=== PATIENT | female | born 1945 | race Caucasian/White ===

== ENCOUNTER → 2017-05-19 | Outpatient (CLI) | payer OTHER ==
[~2017-05-19] MED LIST: ALPR-475 PO; AMLO10TA4 PO; ASPI-13 PO; CARV25TA12 PO; HYDR-882 PO; LEVO100T5 PO; LOSA1TAB12 PO; METF500T27 PO; OMEP20TA62 PO; PREG100C PO; REGADENOSON 0.4 MG/5 ML SYRINGE ONE; ZOLP10TA PO
== END | disposition home or self-care (01) ==
LOC: CFH 11:52
PROVIDERS: ATTEND Internal Medicine
DX: I25.10 Atherosclerotic heart disease of native coronary artery without angina pectoris (principal); E11.9 Type 2 diabetes mellitus without complications
CPT/HCPCS: 78452; 93017; A9502; J2785

== ENCOUNTER 2017-10-19 | Inpatient (IN) | payer OTHER ==
[~2017-10-19] VITALS: Ht 162.6 cm; Wt 99.3 kg
[~2017-10-19] MED LIST changes: -REGADENOSON 0.4 MG/5 ML SYRINGE ONE
[2017-10-19] MEDS ORDERED: SODIUM CHLORIDE FLUSH 10ML SYR IVF ONE (01:30)
[2017-10-19] MEDS ORDERED: SODIUM CHLORIDE 0.9% 1,000ML IVBOLUS ONE (01:30)
[2017-10-19] MEDS ORDERED: ONDANSETRON 2MG/ML, 2ML IVPush ONE (01:30)
[2017-10-19] MEDS ORDERED: KETOROLAC 30 MG/1 ML IVPush ONE (01:30)
[2017-10-19] MEDS ORDERED: PHENAZOPYRIDINE 200 MG TABLET ONE (01:39)
[2017-10-19] MEDS ORDERED: ONDANSETRON 2MG/ML, 2ML ONE (01:39)
[2017-10-19] MEDS ORDERED: KETOROLAC 30 MG/1 ML ONE (01:39)
[2017-10-19 01:53] LABS: BASOPHILS # (AUTO) 0.04 x10^3/uL (0-0.1); BASOPHILS % (AUTO) 0 % (0-1); EOSINOPHILS # (AUTO) 0.15 x10^3/uL (0-0.4); EOSINOPHILS % (AUTO) 1 % (1-7); LYMPHOCYTES # (AUTO) 1.69 x10^3/uL (1-3.4); LYMPHOCYTES % (AUTO) 14 % (22-44); MD NO; MEAN CORPUSCULAR HEMOGLOBIN 30.1 pg (27.0-34.8); MEAN CORPUSCULAR HGB CONC 33.7 g/dL (32.4-35.8); MEAN CORPUSCULAR VOLUME 89.3 fL (80-100); MEAN PLATELET VOLUME 8.2 fL (7.4-10.4); MONOCYTES # (AUTO) 0.77 x10^3/uL (0.2-0.8); MONOCYTES % (AUTO) 6 % (2-9); NEUTROPHILS % (AUTO) 79 % (42-75); PLATELET COUNT 360 x10^3/uL (130-400); RED BLOOD COUNT 4.38 x10^6/uL (3.82-5.3); RED CELL DISTRIBUTION WIDTH 13.4 % (9.6-15.2)
[2017-10-19] MEDS ORDERED: PHENAZOPYRIDINE 200 MG TABLET PO ONE (02:00)
[2017-10-19 02:07] LABS: ALANINE AMINOTRANSFERASE 91 U/L (12-78); ALBUMIN 3.3 g/dL (3.4-5.0); ANION GAP 7 mmol/L (5-15); CALCIUM 8.7 mg/dL (8.5-10.1); CHLORIDE 107 mmol/L (98-107); CREATININE 0.96 mg/dL (0.55-1.02)
[2017-10-19 02:09] LABS: ALKALINE PHOSPHATASE 348 U/L (45-117); BILIRUBIN,TOTAL 0.5 mg/dL (0.2-1.0); TOTAL PROTEIN 7.9 g/dL (6.4-8.2)
[2017-10-19 02:43] LABS: CULTURE INDICATED? YES; MICROSCOPIC INDICATED
[2017-10-19] MEDS ORDERED: CEFTRIAXONE PMX 1GM/50ML 50 ML ONE (02:57)
[2017-10-19] MEDS ORDERED: CEFTRIAXONE PMX 1GM/50ML 50 ML IV ONE (03:00)
[2017-10-19] MEDS ORDERED: SODIUM CHLORIDE 0.9% 1,000 ML IV ONE (03:03)
[2017-10-19] MEDS ORDERED: OMEG1CAP23 PO (03:21)
[2017-10-19] MEDS ORDERED: CHOL5000 PO (03:21)
[2017-10-19] MEDS ORDERED: PROMETHAZINE 25 MG/ML, 1ML IM PRN ×2 (03:30→20:00)
[2017-10-19] MEDS ORDERED: SODIUM CHLORIDE FLUSH 10ML SYR IVF PRN (03:30)
[2017-10-19] MEDS ORDERED: MORPHINE SULFATE 4 MG/ML, 1ML IVPush PRN (03:30)
[2017-10-19] MEDS ORDERED: ONDANSETRON 2MG/ML, 2ML IVPush PRN ×2 (03:30→18:30)
[2017-10-19 04:05] VITALS: BP 144/82
[2017-10-19 06:28] VITALS: BP 158/77
[2017-10-19] MEDS ORDERED: INSU100I11 SC (12:19)
[2017-10-19 12:49] VITALS: BP 156/82
[2017-10-19] MEDS ORDERED: LEVOTHYROXINE 100 MCG TABLET PO PRN (13:30)
[2017-10-19] MEDS ORDERED: CEFTRIAXONE 1,000 MG in DEXTROSE 5% 50 ML IV SCH (14:30)
[2017-10-19] MEDS ORDERED: INSULIN LISPRO SC SCH (16:00)
[2017-10-19] MEDS ORDERED: INSULIN ASPART 100 UNITS/ML, PEN SQ-INSULIN SCH (16:00)
[2017-10-19] MEDS ORDERED: OMNIPAQUE 350 MG/ML, 100ML BOTTLE ONE (16:55)
[2017-10-19 17:21] VITALS: BP 152/81
[2017-10-19 18:35] VITALS: BP 149/79
[2017-10-19] MEDS: ENOXAPARIN 40 MG/0.4 ML SQ SCH (18:50)
[2017-10-19] MEDS: INSULIN ASPART 100 UNITS/ML, PEN SQ-INSULIN SCH ×2 (18:53→21:00)
[2017-10-19] MEDS ORDERED: ACETAMINOPHEN 325 MG TABLET PO PRN (20:00)
[2017-10-19] MEDS ORDERED: ACETAMINOPHEN 500 MG TABLET PO PRN (20:00)
[2017-10-19] MEDS: CIPROFLOXACIN 500 MG TABLET PO SCH (21:00)
[2017-10-19] MEDS: PREGABALIN 100 MG CAPSULE PO SCH (23:21)
[2017-10-19] MEDS: CARVEDILOL 25 MG TABLET PO SCH (23:21)
[2017-10-19] MEDS: ZOLPIDEM 10MG TABLET PO SCH (23:21)
[2017-10-19] MEDS: metFORMIN 500 MG TABLET PO SCH (23:41)
[2017-10-19] MEDS: AMLODIPINE 5 MG TABLET PO SCH (23:41)
[2017-10-20 00:43] VITALS: BP 107/55
[2017-10-20] MEDS: CEFTRIAXONE 1,000 MG in DEXTROSE 5% 50 ML IV SCH (02:24)
[2017-10-20 05:47] LABS: BASOPHILS # (AUTO) 0.02 x10^3/uL (0-0.1); BASOPHILS % (AUTO) 0 % (0-1); EOSINOPHILS # (AUTO) 0.01 x10^3/uL (0-0.4); EOSINOPHILS % (AUTO) 0 % (1-7); LYMPHOCYTES # (AUTO) 1.52 x10^3/uL (1-3.4); LYMPHOCYTES % (AUTO) 10 % (22-44); MD NO; MEAN CORPUSCULAR HEMOGLOBIN 29.3 pg (27.0-34.8); MEAN CORPUSCULAR HGB CONC 32.8 g/dL (32.4-35.8); MEAN CORPUSCULAR VOLUME 89.3 fL (80-100); MEAN PLATELET VOLUME 8.5 fL (7.4-10.4); MONOCYTES # (AUTO) 1.06 x10^3/uL (0.2-0.8); MONOCYTES % (AUTO) 7 % (2-9); NEUTROPHILS # (AUTO) 13.13 x10^3/uL (1.8-6.8); NEUTROPHILS % (AUTO) 83 % (42-75); PLATELET COUNT 325 x10^3/uL (130-400); RED BLOOD COUNT 4.04 x10^6/uL (3.82-5.3); RED CELL DISTRIBUTION WIDTH 13.3 % (9.6-15.2)
[2017-10-20] MEDS ORDERED: LEVOTHYROXINE 100 MCG TABLET PO PRN (06:00)
[2017-10-20 06:02] LABS: ALANINE AMINOTRANSFERASE 77 U/L (12-78); ALBUMIN 2.8 g/dL (3.4-5.0); ANION GAP 11 mmol/L (5-15); CHLORIDE 105 mmol/L (98-107); CREATININE 0.99 mg/dL (0.55-1.02)
[2017-10-20 06:12] LABS: ALKALINE PHOSPHATASE 294 U/L (45-117); BILIRUBIN,TOTAL 0.5 mg/dL (0.2-1.0); TOTAL PROTEIN 7.1 g/dL (6.4-8.2)
[2017-10-20 06:15] LABS: HEMOGLOBIN A1C 8.1 % (4.2-6.3)
[2017-10-20 07:00] VITALS: BP 113/56
[2017-10-20] MEDS: CIPROFLOXACIN 500 MG TABLET PO SCH ×2 (08:18→15:08)
[2017-10-20] MEDS: INSULIN ASPART 100 UNITS/ML, PEN SQ-INSULIN SCH ×4 (08:18→21:41)
[2017-10-20] MEDS: CHOLECALCIFEROL 1,000 UNIT TABLET PO SCH (08:19)
[2017-10-20] MEDS: metFORMIN 500 MG TABLET PO SCH ×2 (08:21→21:41)
[2017-10-20] MEDS: HYDROCHLOROTHIAZIDE 12.5 MG CAPSULE PO SCH (08:21)
[2017-10-20] MEDS: LOSARTAN 50MG TABLET PO SCH (08:21)
[2017-10-20] MEDS: PREGABALIN 100 MG CAPSULE PO SCH ×2 (08:21→17:32)
[2017-10-20] MEDS: CARVEDILOL 25 MG TABLET PO SCH ×2 (08:22→17:33)
[2017-10-20 13:59] VITALS: BP 114/58
[2017-10-20] MEDS: ENOXAPARIN 40 MG/0.4 ML SQ SCH (17:33)
[2017-10-20 18:27] VITALS: BP 113/65
[2017-10-20] MEDS: CEPHALEXIN 500 MG CAPSULE PO SCH (21:41)
[2017-10-20] MEDS: AMLODIPINE 5 MG TABLET PO SCH (21:41)
[2017-10-20] MEDS: ZOLPIDEM 10MG TABLET PO SCH (21:42)
[2017-10-21] MEDS: CEFTRIAXONE 1,000 MG in DEXTROSE 5% 50 ML IV SCH (02:37)
[2017-10-21 02:40] VITALS: BP 108/69
[2017-10-21] MEDS: LEVOTHYROXINE 100 MCG TABLET PO SCH (06:24)
[2017-10-21 07:10] VITALS: BP 120/71
[2017-10-21] MEDS: CEPHALEXIN 500 MG CAPSULE PO SCH ×2 (08:13→21:14)
[2017-10-21] MEDS: metFORMIN 500 MG TABLET PO SCH ×2 (08:13→21:13)
[2017-10-21] MEDS: PREGABALIN 100 MG CAPSULE PO SCH ×2 (08:13→21:13)
[2017-10-21] MEDS: CARVEDILOL 25 MG TABLET PO SCH ×2 (08:14→21:14)
[2017-10-21] MEDS: CHOLECALCIFEROL 1,000 UNIT TABLET PO SCH (08:14)
[2017-10-21] MEDS: LOSARTAN 50MG TABLET PO SCH (08:15)
[2017-10-21] MEDS: INSULIN ASPART 100 UNITS/ML, PEN SQ-INSULIN SCH ×4 (08:15→21:15)
[2017-10-21] MEDS: HYDROCHLOROTHIAZIDE 12.5 MG CAPSULE PO SCH (08:17)
[2017-10-21 14:00] VITALS: BP 110/70
[2017-10-21] MEDS: SITAGLIPTIN 25MG TABLET PO SCH (15:00)
[2017-10-21] MEDS: ENOXAPARIN 40 MG/0.4 ML SQ SCH (16:30)
[2017-10-21 20:00] VITALS: BP 118/66
[2017-10-21] MEDS: AMLODIPINE 5 MG TABLET PO SCH ×2 (21:00→21:13)
[2017-10-21] MEDS: ZOLPIDEM 10MG TABLET PO SCH (21:13)
[2017-10-22 01:22] VITALS: BP 122/72
[2017-10-22] MEDS: CEFTRIAXONE 1,000 MG in DEXTROSE 5% 50 ML IV SCH ×2 (01:29→01:38)
[2017-10-22 04:53] LABS: BASOPHILS # (AUTO) 0.01 x10^3/uL (0-0.1); BASOPHILS % (AUTO) 0 % (0-1); EOSINOPHILS % (AUTO) 3 % (1-7); LYMPHOCYTES # (AUTO) 1.68 x10^3/uL (1-3.4); LYMPHOCYTES % (AUTO) 17 % (22-44); MD NO; MEAN CORPUSCULAR HEMOGLOBIN 29.8 pg (27.0-34.8); MEAN CORPUSCULAR HGB CONC 33.2 g/dL (32.4-35.8); MEAN CORPUSCULAR VOLUME 89.7 fL (80-100); MONOCYTES # (AUTO) 1.17 x10^3/uL (0.2-0.8); MONOCYTES % (AUTO) 12 % (2-9); NEUTROPHILS # (AUTO) 6.74 x10^3/uL (1.8-6.8); NEUTROPHILS % (AUTO) 68 % (42-75); PLATELET COUNT 294 x10^3/uL (130-400); RED BLOOD COUNT 3.71 x10^6/uL (3.82-5.3); RED CELL DISTRIBUTION WIDTH 13.1 % (9.6-15.2)
[2017-10-22 05:05] LABS: ALBUMIN 2.3 g/dL (3.4-5.0); ANION GAP 6 mmol/L (5-15); CHLORIDE 106 mmol/L (98-107)
[2017-10-22 05:11] LABS: ALANINE AMINOTRANSFERASE 76 U/L (12-78); ALKALINE PHOSPHATASE 265 U/L (45-117); BILIRUBIN,TOTAL 0.5 mg/dL (0.2-1.0); CREATININE 0.72 mg/dL (0.55-1.02); TOTAL PROTEIN 6.5 g/dL (6.4-8.2)
[2017-10-22] MEDS: LEVOTHYROXINE 100 MCG TABLET PO SCH (05:59)
[2017-10-22] MEDS: INSULIN ASPART 100 UNITS/ML, PEN SQ-INSULIN SCH ×2 (07:51→11:11)
[2017-10-22] MEDS: SITAGLIPTIN 25MG TABLET PO SCH (07:52)
[2017-10-22] MEDS: CEPHALEXIN 500 MG CAPSULE PO SCH (07:52)
[2017-10-22] MEDS: metFORMIN 500 MG TABLET PO SCH (07:52)
[2017-10-22] MEDS: CARVEDILOL 25 MG TABLET PO SCH (07:52)
[2017-10-22] MEDS: PREGABALIN 100 MG CAPSULE PO SCH (07:52)
[2017-10-22] MEDS: CHOLECALCIFEROL 1,000 UNIT TABLET PO SCH (07:52)
[2017-10-22] MEDS: LOSARTAN 50MG TABLET PO SCH (07:53)
[2017-10-22] MEDS: HYDROCHLOROTHIAZIDE 12.5 MG CAPSULE PO SCH (07:53)
[2017-10-22] MEDS ORDERED: SITAGLIPTIN 25MG TABLET PO SCH (09:00)
[2017-10-22 10:03] VITALS: BP 110/67
[2017-10-22] MEDS ORDERED: CEPH-376 PO (11:41)
[2017-10-22] MEDS ORDERED: SITA25TA PO (11:41)
== END 2017-10-22 13:14 | disposition home or self-care (01) | DRG 872 ==
LOC: ED 03:18 → 5SO 04:15 → 3NE 21:48
PROVIDERS: ADMIT Internal Medicine; ATTEND Internal Medicine
DX: A41.9 Sepsis, unspecified organism (principal); E44.0 Moderate protein-calorie malnutrition; E11.65 Type 2 diabetes mellitus with hyperglycemia; E86.0 Dehydration; N12 Tubulo-interstitial nephritis, not specified as acute or chronic; N30.91 Cystitis, unspecified with hematuria; Z79.4 Long term (current) use of insulin; R74.8 Abnormal levels of other serum enzymes; I10 Essential (primary) hypertension; M79.7 Fibromyalgia; Z90.49 Acquired absence of other specified parts of digestive tract
CPT/HCPCS: 36415; 74177; 80053; 81001; 82962; 83036; 83605; 84145; 84443; 85025; 87040; 87077; 87086; 87186; 93005; 93970; 96374; 96375; J0696; J1650; J1815; J1885; J2405; J2550; Q9967; J7030

== ENCOUNTER 2018-07-12 15:05 | Emergency (ER) | payer OTHER ==
[~2018-07-12] VITALS: Ht 162.6 cm; Wt 93.8 kg
[~2018-07-12 15:05] MED LIST changes: +CEPH-376 PO; +CHOL5000 PO; +CIPR250T2 PO; +HYDR-3653 PO; -HYDR-882 PO; +INSU100I11 SC; +OMEG1CAP23 PO; +SITA25TA PO
[2018-07-12 16:27] LABS: BASOPHILS # (AUTO) 0.03 x10^3/uL (0-0.1); BASOPHILS % (AUTO) 1 % (0-1); EOSINOPHILS # (AUTO) 0.29 x10^3/uL (0-0.4); EOSINOPHILS % (AUTO) 4 % (1-7); LYMPHOCYTES # (AUTO) 1.27 x10^3/uL (1-3.4); LYMPHOCYTES % (AUTO) 19 % (22-44); MD NO; MEAN CORPUSCULAR HEMOGLOBIN 29.7 pg (27.0-34.8); MEAN CORPUSCULAR HGB CONC 33.7 g/dL (32.4-35.8); MEAN CORPUSCULAR VOLUME 88.2 fL (80-100); MEAN PLATELET VOLUME 8.4 fL (7.4-10.4); MONOCYTES # (AUTO) 0.43 x10^3/uL (0.2-0.8); MONOCYTES % (AUTO) 6 % (2-9); NEUTROPHILS # (AUTO) 4.71 x10^3/uL (1.8-6.8); NEUTROPHILS % (AUTO) 70 % (42-75); PLATELET COUNT 330 x10^3/uL (130-400); RED BLOOD COUNT 4.36 x10^6/uL (3.82-5.3)
[2018-07-12 16:28] LABS: ALANINE AMINOTRANSFERASE 110 U/L (12-78); ALBUMIN 3.1 g/dL (3.4-5.0); ANION GAP 9 mmol/L (5-15); CALCIUM 8.6 mg/dL (8.5-10.1); CHLORIDE 111 mmol/L (98-107); CREATININE 0.96 mg/dL (0.55-1.02)
[2018-07-12 16:30] LABS: ALKALINE PHOSPHATASE 338 U/L (45-117); BILIRUBIN,TOTAL 0.5 mg/dL (0.2-1.0); TOTAL PROTEIN 7.6 g/dL (6.4-8.2)
[2018-07-12] MEDS ORDERED: KETOROLAC 30 MG/1 ML IVPush ONE (16:30)
[2018-07-12] MEDS ORDERED: SODIUM CHLORIDE 0.9%, 500ML IVBOLUS ONE (16:30)
[2018-07-12] MEDS ORDERED: KETOROLAC 30 MG/1 ML ONE (16:54)
[2018-07-12 17:22] VITALS: BP 170/77
[2018-07-12 17:34] LABS: CULTURE INDICATED? YES; MICROSCOPIC INDICATED
[2018-07-12] MEDS ORDERED: CEFTRIAXONE 1,000 MG in SODIUM CHLORIDE 0.9% 50 ML IV ONE (18:00)
[2018-07-12] MEDS ORDERED: CEFTRIAXONE PMX 1GM/50ML 50 ML ONE (18:09)
== END 2018-07-12 18:48 | disposition home or self-care (01) ==
LOC: ED 16:37
DX: N30.00 Acute cystitis without hematuria (principal); R10.30 Lower abdominal pain, unspecified; E07.9 Disorder of thyroid, unspecified; I10 Essential (primary) hypertension; Z88.1 Allergy status to other antibiotic agents; Z88.6 Allergy status to analgesic agent; Z90.49 Acquired absence of other specified parts of digestive tract
CPT/HCPCS: 36415; 80053; 81001; 85025; 87077; 87086; 96365; 96375; 99284; J0696; J1885; J7040; 87186

== ENCOUNTER → 2019-12-05 | Outpatient (CLI) | payer MEDICARE ==
[~2019-12-05] MED LIST changes: -ALPR-475 PO; +ALPR0.5T7 PO
== END | disposition home or self-care (01) ==
LOC: RAD 09:44
PROVIDERS: ATTEND Internal Medicine Infectious Disease
DX: N30.10 Interstitial cystitis (chronic) without hematuria (principal); Z79.2 Long term (current) use of antibiotics
CPT/HCPCS: 36573; C1751

== ENCOUNTER → 2020-01-02 | Outpatient (CLI) | payer MEDICARE | END | disposition home or self-care (01) | LOC: RAD 12:39 | PROVIDERS: ATTEND Internal Medicine Infectious Disease | DX: N39.0 Urinary tract infection, site not specified (principal) | CPT/HCPCS: 76700; 76770 ==

== ENCOUNTER 2020-01-10 09:56 | Outpatient (CLI) | payer MEDICARE ==
[2020-01-10] MEDS ORDERED: GADOTERATE 10 MMOL/20 ML VIAL ONE (10:30)
== END 2020-01-10 23:59 | disposition home or self-care (01) ==
LOC: RAD 09:56
PROVIDERS: ATTEND Internal Medicine Infectious Disease
DX: N39.0 Urinary tract infection, site not specified (principal)
CPT/HCPCS: 72197; A9575

== ENCOUNTER 2021-02-22 09:56 | Inpatient (IN) | payer MEDICARE ==
[~2021-02-22] VITALS: Ht 162.6 cm; Wt 86.2 kg
--- NOTE | 2021-02-22 10:09 | NUR ---
PT BIB EMS FOR WEAKNESS. PT STATES "I GOT UP THIS MORNING AND MY LEGS GAVE OUT." EMS STATED THEY HAD TO CARRY HER TO THE GURNEY AND SHE WAS UNABLE TO WALK. PT HAS HX OF FREQUENT UTI. ORGINALLY ON SCENE PT WAS HYPOTENSIVE "60S". 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 PT RESTING IN GURNEY. CONNECTED TO MONITORING EQUIPMENT. EKG COMPLETE. BLANKET PROVIDED. DAUGHTER BEDSIDE
[2021-02-22] MEDS ORDERED: SODIUM CHLORIDE FLUSH 10ML SYR IVF ONE (10:30)
[2021-02-22] MEDS ORDERED: SODIUM CHLORIDE 0.9% 1,000 ML IV ONE ×2 (10:30→12:00)
[2021-02-22 10:58] LABS: BASOPHILS % (AUTO) 0 % (0-1); EOSINOPHILS % (AUTO) 0 % (1-7); LYMPHOCYTES % (AUTO) 6 % (22-44); MEAN CORPUSCULAR HEMOGLOBIN 28.3 pg (27.0-34.8); MEAN PLATELET VOLUME 8.2 fL (7.4-10.4); MONOCYTES % (AUTO) 6 % (2-9); NEUTROPHILS % (AUTO) 88 % (42-75); PLATELET COUNT 332 x10^3/uL (130-400); RED CELL DISTRIBUTION WIDTH 14.3 % (9.6-15.2)
[2021-02-22 11:10] LABS: ALANINE AMINOTRANSFERASE 78 U/L (12-78); ALBUMIN 3.2 g/dL (3.4-5.0); CALCIUM 9.3 mg/dL (8.5-10.1)
[2021-02-22 11:19] LABS: MICROSCOPIC INDICATED
[2021-02-22 11:24] LABS: ALKALINE PHOSPHATASE 364 U/L (45-117); BILIRUBIN,TOTAL 1.6 mg/dL (0.2-1.0); CREATININE 1.22 mg/dL (0.55-1.02); TOTAL PROTEIN 7.8 g/dL (6.4-8.2)
[2021-02-22 11:28] LABS: ANION GAP 8 mmol/L (5-15); CHLORIDE 108 mmol/L (98-107)
[2021-02-22 11:31] LABS: MD SCAN
--- NOTE | 2021-02-22 11:32 | NUR ---
PT RESTING IN [facility]. NADN. WATTS
[2021-02-22] MEDS ORDERED: SULFAMETH./TRIMETHOPRIM DS 800MG/160MG TABLET ONE (11:49)
[2021-02-22] MEDS: SULFAMETH./TRIMETHOPRIM DS 800MG/160MG TABLET PO SCH ×2 (11:52→20:39)
[2021-02-22] MEDS ORDERED: SODIUM CHLORIDE FLUSH 10ML SYR IVF PRN (12:00)
[2021-02-22] MEDS ORDERED: CEFTRIAXONE 1,000 MG in DEXTROSE 5% 50 ML IVPB ONE (12:00)
[2021-02-22 13:29] VITALS: BP 143/62
[2021-02-22] MEDS ORDERED: ACETAMINOPHEN 325 MG TABLET ONE (14:51)
[2021-02-22] MEDS ORDERED: ONDANSETRON 2MG/ML, 2ML ONE (14:56)
[2021-02-22] MEDS ORDERED: ENOXAPARIN 40 MG/0.4 ML SQ SCH (15:00)
[2021-02-22] MEDS ORDERED: PHARMACY MAY ADJ FOR RENAL FX MC SCH (15:00)
[2021-02-22] MEDS: ONDANSETRON 2MG/ML, 2ML IVPush PRN (15:00)
[2021-02-22] MEDS ORDERED: VANCOMYCIN PER PHARMACY MC SCH (15:00)
[2021-02-22] MEDS ORDERED: SODIUM CHLORIDE 0.9% 1,000 ML IV SCH (15:00)
[2021-02-22] MEDS: HYDROcodone/APAP 5/325 TABLET PO PRN ×3 (15:18→21:26)
[2021-02-22] MEDS ORDERED: VANCOMYCIN 2,100 MG in SODIUM CHLORIDE 0.9% 500 ML IV ONE (15:30)
[2021-02-22] MEDS: ACETAMINOPHEN 325 MG TABLET PO PRN (15:34)
[2021-02-22] MEDS ORDERED: PHARMACOKINETIC MONITORING MC PRN (16:00)
[2021-02-22] MEDS ORDERED: PHARMACOKINETIC CONSULTATION MC ONE (16:00)
[2021-02-22] MEDS: ENOXAPARIN 30 MG/0.3 ML SQ SCH (17:00)
[2021-02-22] MEDS: INSULIN REGULAR 100 UNITS/ML, 3ML VIAL SQ-INSULIN SCH ×2 (17:13→20:41)
[2021-02-22 17:35] VITALS: BP 125/68
[2021-02-22 19:11] VITALS: BP 129/73
[2021-02-22] MEDS: SODIUM CHLORIDE 0.9% 1,000 ML IV SCH (20:42)
[2021-02-22] MEDS: ZOLPIDEM 5MG TABLET PO PRN (21:25)
[2021-02-23] VITALS: BP 121/68
[2021-02-23] MEDS: SODIUM CHLORIDE 0.9% 1,000 ML IV SCH ×2 (02:54→10:56)
[2021-02-23] MEDS: HYDROcodone/APAP 5/325 TABLET PO PRN ×3 (03:09→20:23)
[2021-02-23 04:00] VITALS: BP 106/64
[2021-02-23] MEDS: ACETAMINOPHEN 325 MG TABLET PO PRN ×2 (04:20→10:39)
[2021-02-23] MEDS: ONDANSETRON 2MG/ML, 2ML IVPush PRN ×2 (04:21→20:26)
[2021-02-23 05:18] LABS: BASOPHILS % (AUTO) 0 % (0-1); EOSINOPHILS % (AUTO) 0 % (1-7); LYMPHOCYTES % (AUTO) 7 % (22-44); MEAN CORPUSCULAR HEMOGLOBIN 28.5 pg (27.0-34.8); MEAN CORPUSCULAR HGB CONC 32.5 g/dL (32.4-35.8); MEAN PLATELET VOLUME 8.7 fL (7.4-10.4); MONOCYTES % (AUTO) 8 % (2-9); NEUTROPHILS % (AUTO) 84 % (42-75); PLATELET COUNT 262 x10^3/uL (130-400); RED BLOOD COUNT 3.76 x10^6/uL (3.82-5.3); RED CELL DISTRIBUTION WIDTH 14.5 % (9.6-15.2)
[2021-02-23 05:25] LABS: ALBUMIN 2.4 g/dL (3.4-5.0); ANION GAP 7 mmol/L (5-15); CALCIUM 7.8 mg/dL (8.5-10.1); CHLORIDE 109 mmol/L (98-107)
[2021-02-23 05:31] LABS: ALANINE AMINOTRANSFERASE 61 U/L (12-78); ALKALINE PHOSPHATASE 285 U/L (45-117); BILIRUBIN,TOTAL 0.8 mg/dL (0.2-1.0); TOTAL PROTEIN 6.6 g/dL (6.4-8.2)
[2021-02-23 05:41] LABS: MD SCAN
[2021-02-23 06:58] VITALS: BP 106/63
[2021-02-23] MEDS: SULFAMETH./TRIMETHOPRIM DS 800MG/160MG TABLET PO SCH ×2 (07:35→20:21)
[2021-02-23] MEDS: INSULIN REGULAR 100 UNITS/ML, 3ML VIAL SQ-INSULIN SCH ×4 (07:44→20:21)
[2021-02-23 12:36] VITALS: BP 119/70
[2021-02-23] MEDS: ENOXAPARIN 30 MG/0.3 ML SQ SCH (18:17)
[2021-02-23 18:59] VITALS: BP 149/68
[2021-02-23] MEDS: ZOLPIDEM 5MG TABLET PO PRN (20:22)
[2021-02-24] VITALS (7 sets, daily range): BP systolic 128–166; BP diastolic 66–81
[2021-02-24 04:31] LABS: BASOPHILS % (AUTO) 0 % (0-1); EOSINOPHILS % (AUTO) 0 % (1-7); LYMPHOCYTES % (AUTO) 9 % (22-44); MEAN CORPUSCULAR HEMOGLOBIN 28.7 pg (27.0-34.8); MEAN CORPUSCULAR HGB CONC 32.6 g/dL (32.4-35.8); MEAN PLATELET VOLUME 8.7 fL (7.4-10.4); MONOCYTES % (AUTO) 7 % (2-9); NEUTROPHILS % (AUTO) 83 % (42-75); PLATELET COUNT 257 x10^3/uL (130-400); RED BLOOD COUNT 3.69 x10^6/uL (3.82-5.3); RED CELL DISTRIBUTION WIDTH 14.6 % (9.6-15.2)
[2021-02-24 04:32] LABS: MD NO
[2021-02-24 04:42] LABS: ALBUMIN 2.1 g/dL (3.4-5.0); ANION GAP 5 mmol/L (5-15); CALCIUM 7.9 mg/dL (8.5-10.1); CHLORIDE 111 mmol/L (98-107)
[2021-02-24 04:47] LABS: ALANINE AMINOTRANSFERASE 58 U/L (12-78); ALKALINE PHOSPHATASE 273 U/L (45-117); BILIRUBIN,TOTAL 0.7 mg/dL (0.2-1.0); CREATININE 0.95 mg/dL (0.55-1.02); TOTAL PROTEIN 6.5 g/dL (6.4-8.2)
[2021-02-24] MEDS ORDERED: VANCOMYCIN 1,700 MG in SODIUM CHLORIDE 0.9% 250 ML IV SCH (05:00)
[2021-02-24] MEDS: ONDANSETRON 2MG/ML, 2ML IVPush PRN ×3 (05:05→23:22)
[2021-02-24] MEDS: HYDROcodone/APAP 5/325 TABLET PO PRN ×2 (05:05→19:55)
[2021-02-24] MEDS: INSULIN REGULAR 100 UNITS/ML, 3ML VIAL SQ-INSULIN SCH ×4 (08:00→20:17)
[2021-02-24] MEDS: SULFAMETH./TRIMETHOPRIM DS 800MG/160MG TABLET PO SCH ×2 (11:13→20:15)
[2021-02-24] MEDS: METOCLOPRAMIDE 10MG TABLET PO SCH ×3 (15:26→20:15)
[2021-02-24] MEDS: ENOXAPARIN 30 MG/0.3 ML SQ SCH (16:34)
[2021-02-24] MEDS: CARVEDILOL 25 MG TABLET PO SCH (20:15)
[2021-02-24] MEDS: AMLODIPINE 10 MG TAB PO SCH (20:15)
[2021-02-25 00:52] VITALS: BP 159/83
[2021-02-25 04:10] VITALS: BP 145/72
[2021-02-25] MEDS: LEVOTHYROXINE 100 MCG TABLET PO SCH (04:41)
[2021-02-25] MEDS: ACETAMINOPHEN 325 MG TABLET PO PRN (04:42)
[2021-02-25] MEDS: PANTOPRAZOLE 40MG TABLET PO SCH (04:48)
[2021-02-25 06:38] VITALS: BP 156/78
[2021-02-25] MEDS: INSULIN REGULAR 100 UNITS/ML, 3ML VIAL SQ-INSULIN SCH ×4 (08:03→20:15)
[2021-02-25] MEDS: METOCLOPRAMIDE 10MG TABLET PO SCH ×4 (08:04→20:16)
[2021-02-25] MEDS: SULFAMETH./TRIMETHOPRIM DS 800MG/160MG TABLET PO SCH ×2 (08:04→20:16)
[2021-02-25] MEDS: CARVEDILOL 25 MG TABLET PO SCH ×2 (08:04→20:16)
[2021-02-25] MEDS ORDERED: LEVOTHYROXINE 100 MCG TABLET PO SCH (09:00)
[2021-02-25] MEDS: HYDROcodone/APAP 5/325 TABLET PO PRN ×2 (10:02→16:40)
[2021-02-25 10:19] VITALS: BP 126/75
[2021-02-25 14:53] VITALS: BP 167/79
[2021-02-25] MEDS: ENOXAPARIN 40 MG/0.4 ML SQ SCH (16:30)
[2021-02-25 19:49] VITALS: BP 165/75
[2021-02-25] MEDS: AMLODIPINE 10 MG TAB PO SCH (20:16)
[2021-02-26 01:18] VITALS: BP 152/78
[2021-02-26] MEDS: HYDROcodone/APAP 5/325 TABLET PO PRN (01:43)
[2021-02-26] MEDS: PANTOPRAZOLE 40MG TABLET PO SCH (05:25)
[2021-02-26] MEDS: LEVOTHYROXINE 100 MCG TABLET PO SCH (05:26)
[2021-02-26 06:21] VITALS: BP 166/78
[2021-02-26] MEDS: INSULIN REGULAR 100 UNITS/ML, 3ML VIAL SQ-INSULIN SCH ×4 (07:20→20:27)
[2021-02-26] MEDS: CARVEDILOL 25 MG TABLET PO SCH ×2 (07:21→20:27)
[2021-02-26] MEDS: SULFAMETH./TRIMETHOPRIM DS 800MG/160MG TABLET PO SCH ×2 (07:21→20:27)
[2021-02-26] MEDS: METOCLOPRAMIDE 10MG TABLET PO SCH ×2 (07:21→11:41)
[2021-02-26 10:35] VITALS: BP 128/75
[2021-02-26] MEDS: POLYETHYLENE GLYCOL 17 GM PACKET NG PRN (10:37)
[2021-02-26] MEDS ORDERED: PINK LADY ENEMA 490 ML BOTTLE PR PRN (11:00)
[2021-02-26 14:11] VITALS: BP 146/78
[2021-02-26 14:30] LABS: BASOPHILS % (AUTO) 0 % (0-1); EOSINOPHILS % (AUTO) 1 % (1-7); LYMPHOCYTES % (AUTO) 16 % (22-44); MEAN CORPUSCULAR HEMOGLOBIN 28.8 pg (27.0-34.8); MEAN CORPUSCULAR HGB CONC 32.7 g/dL (32.4-35.8); MEAN PLATELET VOLUME 7.9 fL (7.4-10.4); MONOCYTES % (AUTO) 8 % (2-9); NEUTROPHILS % (AUTO) 75 % (42-75); PLATELET COUNT 321 x10^3/uL (130-400); RED BLOOD COUNT 4.36 x10^6/uL (3.82-5.3); RED CELL DISTRIBUTION WIDTH 14.2 % (9.6-15.2)
[2021-02-26 14:31] LABS: MD NO
[2021-02-26 14:40] LABS: ALBUMIN 2.4 g/dL (3.4-5.0); ANION GAP 10 mmol/L (5-15); CALCIUM 8.4 mg/dL (8.5-10.1); CHLORIDE 106 mmol/L (98-107)
[2021-02-26 14:44] LABS: ALANINE AMINOTRANSFERASE 52 U/L (12-78); ALKALINE PHOSPHATASE 328 U/L (45-117); BILIRUBIN,TOTAL 0.5 mg/dL (0.2-1.0); CREATININE 0.79 mg/dL (0.55-1.02); TOTAL PROTEIN 7.1 g/dL (6.4-8.2)
[2021-02-26] MEDS: ENOXAPARIN 40 MG/0.4 ML SQ SCH (16:16)
[2021-02-26 18:54] VITALS: BP 144/81
[2021-02-26] MEDS: AMLODIPINE 10 MG TAB PO SCH (20:27)
[2021-02-27 00:16] VITALS: BP 128/82
[2021-02-27] MEDS: LEVOTHYROXINE 100 MCG TABLET PO SCH (05:04)
[2021-02-27] MEDS: PANTOPRAZOLE 40MG TABLET PO SCH (05:04)
[2021-02-27 07:02] VITALS: BP 161/73
[2021-02-27] MEDS: INSULIN REGULAR 100 UNITS/ML, 3ML VIAL SQ-INSULIN SCH ×4 (07:26→20:55)
[2021-02-27] MEDS: CARVEDILOL 25 MG TABLET PO SCH ×2 (07:26→20:56)
[2021-02-27] MEDS: SULFAMETH./TRIMETHOPRIM DS 800MG/160MG TABLET PO SCH ×2 (07:27→20:56)
[2021-02-27] MEDS: ACETAMINOPHEN 325 MG TABLET PO PRN (11:24)
[2021-02-27 13:10] LABS: BASOPHILS % (AUTO) 1 % (0-1); EOSINOPHILS % (AUTO) 1 % (1-7); LYMPHOCYTES % (AUTO) 22 % (22-44); MEAN CORPUSCULAR HEMOGLOBIN 28.8 pg (27.0-34.8); MEAN CORPUSCULAR HGB CONC 33.5 g/dL (32.4-35.8); MEAN PLATELET VOLUME 7.8 fL (7.4-10.4); MONOCYTES % (AUTO) 11 % (2-9); NEUTROPHILS % (AUTO) 66 % (42-75); PLATELET COUNT 327 x10^3/uL (130-400); RED BLOOD COUNT 4.17 x10^6/uL (3.82-5.3); RED CELL DISTRIBUTION WIDTH 14.5 % (9.6-15.2)
[2021-02-27 13:21] LABS: ANION GAP 8 mmol/L (5-15); CALCIUM 8.3 mg/dL (8.5-10.1); CHLORIDE 107 mmol/L (98-107); CREATININE 0.69 mg/dL (0.55-1.02)
[2021-02-27 13:30] LABS: MD NO
[2021-02-27 14:01] VITALS: BP 155/76
[2021-02-27] MEDS: POTASSIUM CHLORIDE 20 MEQ TAB.ER.PRT PO SCH (16:24)
[2021-02-27] MEDS: ENOXAPARIN 40 MG/0.4 ML SQ SCH (16:24)
[2021-02-27 20:06] VITALS: BP_SYST 153; BP_SYST 173; BP_DIAS 71; BP_DIAS 75
[2021-02-27] MEDS: AMLODIPINE 10 MG TAB PO SCH (20:56)
[2021-02-27] MEDS: PREGABALIN 100 MG CAPSULE PO SCH (20:56)
[2021-02-28 02:55] VITALS: BP 156/80
[2021-02-28] MEDS: LEVOTHYROXINE 100 MCG TABLET PO SCH (05:48)
[2021-02-28] MEDS: PANTOPRAZOLE 40MG TABLET PO SCH (05:48)
[2021-02-28 06:27] LABS: ANION GAP 6 mmol/L (5-15); CALCIUM 9.1 mg/dL (8.5-10.1); CHLORIDE 107 mmol/L (98-107); CREATININE 0.68 mg/dL (0.55-1.02)
[2021-02-28 06:52] VITALS: BP 146/79
[2021-02-28] MEDS: CARVEDILOL 25 MG TABLET PO SCH ×2 (08:06→20:28)
[2021-02-28] MEDS: PREGABALIN 100 MG CAPSULE PO SCH ×2 (08:06→20:27)
[2021-02-28] MEDS: POTASSIUM CHLORIDE 20 MEQ TAB.ER.PRT PO SCH ×2 (08:06→11:58)
[2021-02-28] MEDS: SULFAMETH./TRIMETHOPRIM DS 800MG/160MG TABLET PO SCH ×2 (08:06→20:28)
[2021-02-28] MEDS: INSULIN REGULAR 100 UNITS/ML, 3ML VIAL SQ-INSULIN SCH ×4 (08:07→20:27)
[2021-02-28 12:59] VITALS: BP 106/68
[2021-02-28] MEDS: ENOXAPARIN 40 MG/0.4 ML SQ SCH (15:48)
[2021-02-28] MEDS ORDERED: MAGNESIUM SULFATE PMX 2GM/50ML 50 ML IV ONE (17:00)
[2021-02-28] MEDS: POTASSIUM CHLORIDE 20 MEQ PACKET PO SCH (17:20)
[2021-02-28 19:56] VITALS: BP 147/72
[2021-02-28] MEDS: AMLODIPINE 10 MG TAB PO SCH (20:28)
[2021-03-01 01:04] VITALS: BP 117/74
[2021-03-01] MEDS: PANTOPRAZOLE 40MG TABLET PO SCH (05:40)
[2021-03-01] MEDS: LEVOTHYROXINE 100 MCG TABLET PO SCH (05:40)
[2021-03-01 06:49] LABS: ANION GAP 6 mmol/L (5-15); CALCIUM 8.4 mg/dL (8.5-10.1); CHLORIDE 107 mmol/L (98-107); CREATININE 0.76 mg/dL (0.55-1.02)
[2021-03-01 07:48] VITALS: BP 153/81
[2021-03-01] MEDS: PREGABALIN 100 MG CAPSULE PO SCH ×2 (08:00→20:28)
[2021-03-01] MEDS: SULFAMETH./TRIMETHOPRIM DS 800MG/160MG TABLET PO SCH ×2 (08:00→20:28)
[2021-03-01] MEDS: CARVEDILOL 25 MG TABLET PO SCH ×2 (08:00→20:29)
[2021-03-01] MEDS: POTASSIUM CHLORIDE 20 MEQ PACKET PO SCH (08:00)
[2021-03-01] MEDS: MAGNESIUM OXIDE 400 MG TABLET PO SCH (08:00)
[2021-03-01] MEDS: INSULIN REGULAR 100 UNITS/ML, 3ML VIAL SQ-INSULIN SCH ×4 (08:00→20:28)
[2021-03-01 13:46] VITALS: BP 108/70
[2021-03-01] MEDS: ENOXAPARIN 40 MG/0.4 ML SQ SCH (16:24)
[2021-03-01] MEDS: POLYETHYLENE GLYCOL 17 GM PACKET NG PRN (16:24)
[2021-03-01 19:02] VITALS: BP 151/76
[2021-03-01] MEDS: AMLODIPINE 10 MG TAB PO SCH (20:28)
[2021-03-02 02:27] VITALS: BP 143/72
[2021-03-02] MEDS: ACETAMINOPHEN 325 MG TABLET PO PRN (04:50)
[2021-03-02] MEDS: LEVOTHYROXINE 100 MCG TABLET PO SCH (05:14)
[2021-03-02] MEDS: PANTOPRAZOLE 40MG TABLET PO SCH (05:14)
[2021-03-02] MEDS: PREGABALIN 100 MG CAPSULE PO SCH (06:51)
[2021-03-02] MEDS: INSULIN REGULAR 100 UNITS/ML, 3ML VIAL SQ-INSULIN SCH ×2 (07:00→11:42)
[2021-03-02] MEDS: MAGNESIUM OXIDE 400 MG TABLET PO SCH (08:12)
[2021-03-02] MEDS: SULFAMETH./TRIMETHOPRIM DS 800MG/160MG TABLET PO SCH (08:12)
[2021-03-02] MEDS: CARVEDILOL 25 MG TABLET PO SCH (08:13)
[2021-03-02 09:20] VITALS: BP 110/68
[2021-03-02] MEDS ORDERED: SULF-23 PO (13:03)
[2021-03-02 14:34] VITALS: BP 113/71
== END 2021-03-02 15:25 | DRG 871 ==
LOC: ED 11:40 → 3N 12:11 → ED 15:13 → 3N 16:20 → 4WST 16:30
PROVIDERS: ADMIT Emergency Medicine; ATTEND Emergency Medicine
PROC: 0T9B30Z Drainage of Bladder with Drainage Device, Percutaneous Approach (ICD-10-PCS; principal; 2021-02-22)
DX: A41.59 Other Gram-negative sepsis (principal); G92 Toxic encephalopathy; N17.0 Acute kidney failure with tubular necrosis; E87.2 Acidosis; E44.1 Mild protein-calorie malnutrition; B96.1 Klebsiella pneumoniae [K. pneumoniae] as the cause of diseases classified elsewhere; E03.9 Hypothyroidism, unspecified; E11.21 Type 2 diabetes mellitus with diabetic nephropathy; E11.40 Type 2 diabetes mellitus with diabetic neuropathy, unspecified; E11.65 Type 2 diabetes mellitus with hyperglycemia; R53.81 Other malaise; E78.00 Pure hypercholesterolemia, unspecified; E86.1 Hypovolemia; E87.6 Hypokalemia; I10 Essential (primary) hypertension; N30.20 Other chronic cystitis without hematuria; N39.498 Other specified urinary incontinence; Z79.4 Long term (current) use of insulin; Z87.440 Personal history of urinary (tract) infections; Z68.32 Body mass index [BMI] 32.0-32.9, adult
CPT/HCPCS: 36415; 80048; 80053; 81001; 82947; 82962; 83605; 83735; 85025; 87040; 87077; 87086; 87186; 93005; G0378; J0696; J1650; J1815; J2405; J3370; J3475; J7030; J7040; J7050; Q0181

== ENCOUNTER 2021-06-21 13:24 | Emergency (ER) | payer MEDICARE ==
[~2021-06-21] VITALS: Ht 162.6 cm; Wt 85.5 kg
[~2021-06-21 13:24] MED LIST changes: +SULF-23 PO
[2021-06-21 14:17] LABS: ALANINE AMINOTRANSFERASE 168 U/L (12-78); ALBUMIN 2.9 g/dL (3.4-5.0); ANION GAP 9 mmol/L (5-15); CALCIUM 8.3 mg/dL (8.5-10.1); CHLORIDE 106 mmol/L (98-107); CREATININE 1.07 mg/dL (0.55-1.02)
[2021-06-21 14:19] LABS: BASOPHILS % (AUTO) 1 % (0-1); EOSINOPHILS % (AUTO) 2 % (1-7); LYMPHOCYTES % (AUTO) 17 % (22-44); MEAN CORPUSCULAR HGB CONC 33.2 g/dL (32.4-35.8); MEAN PLATELET VOLUME 8.7 fL (7.4-10.4); MONOCYTES % (AUTO) 6 % (2-9); NEUTROPHILS % (AUTO) 74 % (42-75); PLATELET COUNT 397 x10^3/uL (130-400); RED BLOOD COUNT 4.11 x10^6/uL (3.82-5.3); RED CELL DISTRIBUTION WIDTH 13.8 % (9.6-15.2)
[2021-06-21 14:20] LABS: ALKALINE PHOSPHATASE 512 U/L (45-117); BILIRUBIN,TOTAL 0.9 mg/dL (0.2-1.0); TOTAL PROTEIN 8.1 g/dL (6.4-8.2)
--- NOTE | 2021-06-21 17:50 | NUR ---
PATIENT TO ROOM FROM LOBBY
--- NOTE | 2021-06-21 17:52 | NUR ---
PT WHEELED FROM LOBBY BY FAMILY. CHANGING INTO GOWN.
[2021-06-21 19:34] LABS: MICROSCOPIC INDICATED
[2021-06-21] MEDS ORDERED: CEFDINIR 300 MG CAPSULE PO ONE (20:00)
[2021-06-21] MEDS ORDERED: CEFDINIR 300 MG CAPSULE ONE (20:06)
[2021-06-21 20:23] VITALS: BP 130/66
== END 2021-06-21 20:25 | disposition home or self-care (01) ==
LOC: ED 20:10
DX: N30.01 Acute cystitis with hematuria (principal)
CPT/HCPCS: 36415; 80053; 81001; 85025; 87077; 87086; 87186; 99283